=== PATIENT | female | born 1955 | race Caucasian/White ===

== ENCOUNTER → 2017-11-29 | Day surgery (SDC) | payer OTHER ==
[~2017-11-29] MED LIST: D31000CA3; GABA300C5 PO; IBUP200T PO; IOHEXOL 180 MG/ML 20 ML VIAL (for RAD DIAG) EPIDURAL ONE; KETO10 PO; LIDOCAINE HCL 2% PF 2 ML VIAL ONE; MELO7.5T27 PO; PRIL20TA2; PROPOFOL 200 MG/20 ML AMP IV ONE; SODIUM CHLORIDE 0.9% 10 ML VIAL ONE; TAMO20TA6 PO; TRIAMCINOLONE ACETONIDE 40 MG/ML VIAL NERV BLOCK ONE
--- NOTE | 2017-11-29 10:50 | M6 ---
cc: Abram Hanson MD,Sukhi Carson MD DATE: 11/29/2017 DATE OF : 1955 PROCEDURE: Fluoroscopically guided left L5 selective nerve root block (Attention Dr. Suarez, images were sent to the radiology department for your review). PROCEDURE NOTE: History and physical was completed and signed. Consent was signed. Procedure site was marked. Medications were listed and reconciled. Pain score was recorded. Allergies were noted. Time out was taken. Fluoroscopy time was recorded where applicable. Sedation was administered or directed by Dr. Hanson. The patient was given oxygen. The patient was monitored by a registered nurse. Total procedure time was greater than 15 minutes. IV was started. Blood pressure cuff, pulse oximeter and EKG were applied. The patient was placed in the prone position on a Andrzej table, sedated with small amounts of Propofol titrated to effect. Vital signs were monitored and remained stable throughout the procedure. The skin was prepped with alcohol and 10% Betadine solution and draped with sterile drapes. Fluoroscopy was used in both the AP and lateral projection to clearly visualize the left L5-S1 neural foramen. Then, a 22-gauge, 3-1/2-inch Chiba needle was advanced into the dorsal most aspect of the foramen. There was negative aspiration for blood or any other type of fluid. The patient was given 2 mL of Omnipaque which clearly outlined the L5 nerve root. This image was sent to the Radiology Department for further review and then at this point, the patient was given 1.5 mL of 2% lidocaine, and 40 mg of Kenalog directly on the L5 nerve root. We will follow up with the patient immediately and in the next few days to determine if she has a subjective decrease in her usual pain. Abram Hanson MD [facility]/DIANE , 10:23 AM , 10:49 AM
--- NOTE | 2017-11-29 14:24 | RADRPT ---
EXAM DATE/TIME: 11/28/2017 23:18 [facility] COMPARISON: No previous studies available for comparison. INDICATIONS : Left L5 Nerve block MEDICAL HISTORY : None. SURGICAL HISTORY : None. ENCOUNTER: Initial ACUITY: 1 day PAIN SCORE: Non-responsive. LOCATION: Lumbar FINDINGS: A single AP view of the lumbar spine was performed. A single needle is identified placed in the left paraspinal region along the L5-S1 neural foramen. Injection of contrast demonstrates flow contrast i nferiorly over the sacrum. CONCLUSION: Appropriate needle placement for left L5 nerve block. Venkat Cruz MD on November 29, 2017 at 14:20 Board Certified Radiologist. This report was verified electronically.
== END | disposition home or self-care (01) ==
LOC: PHSDC 08:55
PROVIDERS: ATTEND Pain Medicine Interventional Pain Medicine
DX: M54.5 Low back pain (principal); M79.662 Pain in left lower leg; M79.661 Pain in right lower leg
CPT/HCPCS: 64483; 72020; 99152; J3301; Q9965

== ENCOUNTER → 2017-12-20 | Day surgery (SDC) | payer OTHER ==
[~2017-12-20] MED LIST changes: +BUPIVACAINE HCL PF 0.5% 30 ML VIAL ONE; -GABA300C5 PO; -IOHEXOL 180 MG/ML 20 ML VIAL (for RAD DIAG) EPIDURAL ONE; -KETO10 PO; -LIDOCAINE HCL 2% PF 2 ML VIAL ONE; -SODIUM CHLORIDE 0.9% 10 ML VIAL ONE; +TRIAMCINOLONE ACETONIDE 40 MG/ML VIAL I-ARTICULR ONE; -TRIAMCINOLONE ACETONIDE 40 MG/ML VIAL NERV BLOCK ONE; +methylPREDNISolone ACETATE 40 MG/ML VIAL I-ARTICULR ONE
--- NOTE | 2017-12-20 10:30 | M6 ---
cc: Abram Hanson MD DATE: 12/20/2017 PROCEDURE PERFORMED: Fluoroscopic-guided injection bilateral sacroiliac joints. History and physical was completed and signed. Consent was signed. Procedure site was marked. Medications were listed and reconciled. Pain score was recorded. Allergies were noted. Time out was taken. Fluoroscopy time was recorded where applicable. Sedation was administered or directed by Dr. Hanson. The patient was given oxygen. The patient was monitored by a registered nurse. Total procedure time was greater than 15 minutes. IV was started. Blood pressure cuff, pulse oximeter and EKG were applied. The patient was placed in the prone position on a Andrzej table, sedated with small amounts of Propofol titrated to effect. Vital signs were monitored and remained stable throughout the procedure. The lumbar area was prepped with alcohol and 10% Betadine solution and draped with sterile drapes. Fluoroscopy was used shooting from medial to lateral to clearly visualize the posterior joint line of the bilateral sacroiliac joints. Separate sterile 5 inch, 22-gauge spinal needles were advanced into the joints under fluoroscopic guidance. There was negative aspiration for blood or any other type of fluid and at each location, the patient was given 2 mL of 0.5% Marcaine, 20 mg of Depo-Medrol and 20 mg of Kenalog. Following the procedure, the patient was taken to the recovery room with stable vital signs and neurologically intact. She will be evaluated immediately and will followup to determine if she has a subjective decrease in her usual pain and a corresponding objective increase in her functional capabilities. MD SULEIMAN Ribeiro/TRANG , 10:11 AM , 10:30 AM
== END | disposition home or self-care (01) ==
LOC: PHSDC 08:58
PROVIDERS: ATTEND Pain Medicine Interventional Pain Medicine
DX: M54.5 Low back pain (principal); M79.662 Pain in left lower leg; M79.661 Pain in right lower leg
CPT/HCPCS: 27096; 99152; J1030; J3301; G0260

== ENCOUNTER → 2018-01-13 | Outpatient (CLI) | payer OTHER ==
[~2018-01-13] MED LIST changes: -BUPIVACAINE HCL PF 0.5% 30 ML VIAL ONE; -PROPOFOL 200 MG/20 ML AMP IV ONE; -TRIAMCINOLONE ACETONIDE 40 MG/ML VIAL I-ARTICULR ONE; -methylPREDNISolone ACETATE 40 MG/ML VIAL I-ARTICULR ONE
== END ==
LOC: HREF 07:37
PROVIDERS: ATTEND Family Medicine
DX: N95.0 Postmenopausal bleeding (principal)
CPT/HCPCS: 88305

== ENCOUNTER → 2018-01-14 | Day surgery (SDC) | payer OTHER ==
[~2018-01-14] MED LIST changes: +BUPIVACAINE HCL PF 0.75% 30 ML VIAL; -D31000CA3; +EPINEPHrine HCL (1:1000) 30 MG/30 ML VIAL; -IBUP200T PO; +LACTATED RINGER'S 1000 ML INJ 1,000 ML; +LIDOCAINE 2%/EPINEPHrine PF 1:200,000 20ML SDV; -MELO7.5T27 PO; +MIDAZOLAM HCL 5 MG/ML VIAL (1 ML); +ONDANSETRON HCL 4 MG/2 ML VIAL IV PUSH; -PRIL20TA2; +PROPOFOL 200 MG/20 ML AMP IV; -TAMO20TA6 PO; +ceFAZolin 1 GM PREMIX 50 ML
== END | disposition home or self-care (01) ==
LOC: ESDC 06:03
DX: M75.122 Complete rotator cuff tear or rupture of left shoulder, not specified as traumatic (principal); M75.22 Bicipital tendinitis, left shoulder; M75.42 Impingement syndrome of left shoulder
CPT/HCPCS: 01630

== ENCOUNTER → 2018-02-02 | Day surgery (SDC) | payer OTHER ==
[~2018-02-02] MED LIST changes: -BUPIVACAINE HCL PF 0.75% 30 ML VIAL; +D31000CA3; -EPINEPHrine HCL (1:1000) 30 MG/30 ML VIAL; +IBUP200T PO; +IOHEXOL 180 MG/ML 20 ML VIAL (for RAD DIAG) EPIDURAL ONE; -LACTATED RINGER'S 1000 ML INJ 1,000 ML; -LIDOCAINE 2%/EPINEPHrine PF 1:200,000 20ML SDV; +LIDOCAINE HCL 1% 30 ML VIAL NERV BLOCK ONE; +MELO7.5T27 PO; -MIDAZOLAM HCL 5 MG/ML VIAL (1 ML); -ONDANSETRON HCL 4 MG/2 ML VIAL IV PUSH; +PERC5TAB12 PO; +PRIL20TA2; -PROPOFOL 200 MG/20 ML AMP IV; +PROPOFOL 200 MG/20 ML AMP IV ONE; +TAMO20TA6 PO; +TRIAMCINOLONE ACETONIDE 40 MG/ML VIAL NERV BLOCK ONE; -ceFAZolin 1 GM PREMIX 50 ML
--- NOTE | 2018-02-02 10:36 | M6 ---
cc: Abram Hanson MD DATE: 02/02/2018 PROCEDURE: Fluoroscopically-guided right S1 transforaminal epidural steroid injection. History and physical was completed and signed. Consent was signed. Procedure site was marked. Medications were listed and reconciled. Pain score was recorded. Allergies were noted. Time out was taken. Fluoroscopy time was recorded where applicable. Sedation was administered or directed by Dr. Hanson. The patient was given oxygen. The patient was monitored by a registered nurse. Total procedure time was greater than 15 minutes. PROCEDURE NOTE: An IV was started, blood pressure cuff, pulse oximeter and EKG were applied. The patient was placed in the prone position on a Andrzej table, sedated with small amounts of Versed and propofol titrated to effect. Vital signs were monitored and remained stable throughout the procedure. The patient remained responsive throughout the procedure. The lumbar area was scrubbed with antimicrobial solution, prepped with 10% Betadine solution, and draped with sterile drapes. Fluoroscopy was used in both the AP and lateral projections to clearly visualize the right S1 neural foramen. Then separate sterile 22 gauge, 3 1/2-inch Chiba needles were advanced under fluoroscopic guidance into the dorsal-most aspect of each foramen. There was negative aspiration for blood or CSF. There were no reported paresthesias by the patient. There was no washout of 2 mL of Omnipaque. Then after waiting approximately 60 seconds, the patient was slowly given 3 mL of 1% Xylocaine, 3 mL of Omnipaque and 60 mg of Kenalog at that location. Abram Hanson MD [facility] , 09:59 AM , 10:35 AM
== END | disposition home or self-care (01) ==
LOC: PHSDC 08:26
PROVIDERS: ATTEND Pain Medicine Interventional Pain Medicine
DX: M54.16 Radiculopathy, lumbar region (principal)
CPT/HCPCS: 64483; 99152; J3301; Q9965

== ENCOUNTER 2018-05-05 08:14 | Observation (INO) ==
[2018-05-05] MEDS ORDERED: Metoprolol Tartrate 25 MG Tablet PO SCH (08:45)
[2018-05-05] MEDS ORDERED: Chlorhexidine Gluconate 2% 1 Pack (2 Cloths) TOPICAL SCH (08:45)
[2018-05-05] MEDS ORDERED: Sodium Chlor 0.9% Inj 500 ML IV.SIG SCH (09:00)
[2018-05-05] MEDS ORDERED: ceFAZolin 2 GM Premix Inj 2 GM/100 ML BAG IV.SIG SCH (09:00)
[2018-05-05] MEDS ORDERED: Heparin - SQ 10,000 UNITS/ML Vial SQ SCH (09:00)
[2018-05-05] MEDS ORDERED: Sugammadex Inj 200 MG/2 ML Vial IV.PUSH ONE (10:56)
[2018-05-05] MEDS ORDERED: Lidocaine 1%/Epinephrine 1:100,000 Inj 20 ML Vial ONE (11:04)
[2018-05-05] MEDS ORDERED: Ketorolac Inj 30 MG/ML (IVP) Vial IV.PUSH ONE (14:15)
[2018-05-05] MEDS ORDERED: LORazepam 0.5 MG Tablet PO PRN (15:02)
[2018-05-05] MEDS ORDERED: *Meperidine Inj 25 MG/ML Vial PERIprocedural Use ONLY ONE (15:40)
[2018-05-05] MEDS: KCL 20 mEq/D5W/NaCl 0.45% Inj 1,000 ML IV.CONT SCH (15:45)
[2018-05-05] MEDS ORDERED: *morphine SULFATE 10 MG/ML PERIprocedure ONLY ONE (16:16)
[2018-05-05] MEDS ORDERED: Morphine Inj 4 MG/ML Vial ONE (18:00)
[2018-05-05] MEDS ORDERED: fentaNYL Citrate Inj 100 MCG/2 ML Ampul ONE ×2 (18:00)
[2018-05-05] MEDS: Ketorolac Inj 30 MG/ML (IVP) Vial IV.PUSH SCH ×2 (18:15→23:31)
[2018-05-05 23:43] VITALS: RESP 18
[2018-05-06] MEDS: KCL 20 mEq/D5W/NaCl 0.45% Inj 1,000 ML IV.CONT SCH (04:39)
[2018-05-06] MEDS: Ketorolac Inj 30 MG/ML (IVP) Vial IV.PUSH SCH ×2 (06:35→11:08)
[2018-05-06 07:32] LABS: Baso % (Auto) 0.1 % (0.0-2.0); Eos % (Auto) 0.1 % (0.0-4.0); Hemoglobin 11.1 gm/dL (11.6-15.3); Lymph # (Auto) 1.6 th/mm3 (1.0-4.8); Lymph % (Auto) 17.5 % (9.0-44.0); Mean Corpuscular HGB Conc 33.6 % (32.0-36.0); Mean Corpuscular Volume 92.2 fL (80.0-100.0); Mean Platelet Volume 9.8 fL (7.0-11.0); Mono # (Auto) 0.5 th/mm3 (0.0-0.9); Mono % (Auto) 5.9 % (0.0-8.0); Neut % (Auto) 76.4 % (16.0-70.0); Platelet Count 154 th/mm3 (150-450); Red Blood Count 3.58 mil/mm3 (4.00-5.30); Red Cell Distribution Width 12.3 % (11.6-17.2); White Blood Count 9.1 th/mm3 (4.0-11.0)
[2018-05-06 08:02] LABS: Anion Gap 6 meq/L (5-15); Blood Urea Nitrogen 7 mg/dL (7-18); Carbon Dioxide 29.9 meq/L (21.0-32.0); Chloride 107 meq/L (98-107); Glomerular Filtration Rate Greater Than 89 mL/min (>89); Glucose,Random 112 mg/dL (74-106); Sodium 143 meq/L (136-145)
[2018-05-06] MEDS ORDERED: Pantoprazole Sodium 20 MG DR Tablet PO SCH (09:00)
[2018-05-06 13:03] VITALS: BP 131/75; PULSE 92; TEMP 98; O2SAT 93
--- NOTE | 2018-05-08 21:48 | MD ---
cc: Lorraine Hastings MD,Eugenia Harris,Elvia Vasquez MD DATE OF DISCHARGE: 05/06/2018 PROCEDURE: Robotic-assisted laparoscopic hysterectomy, bilateral salpingo-oophorectomy. DIAGNOSIS: Endometrial polyps postmenopausal bleeding. HOSPITAL COURSE: She did well in her early postop period, hemodynamically stable, adequate pain control, tolerating oral intake. OBJECTIVE: Ins and outs 3280/1950. LABORATORY DATA: H and H 11.1 and 33. Electrolytes pending. PHYSICAL EXAM: VITAL SIGNS: Afebrile, pulse 68-101, respirations 18-20, blood pressure 100-128/60-75, O2 saturations greater than or equal to 98%. GENERAL: Alert and oriented x3, no acute distress. LUNGS: Clear. CARDIOVASCULAR: Regular rate and rhythm. ABDOMEN: Soft. Incisions clean and dry. GYNECOLOGIC: No bleeding. EXTREMITIES: Nontender. ASSESSMENT: Postoperative day number one. Findings at the time of surgery, preliminary pathology discussed. Overall, she is doing well. Recommendation for continued indwelling Salamanca due to scar tissue inflammation and dissection around the bladder as well as periurethral lacerations that required repair from a transvaginal delivery of specimen. She is encouraged to take once daily antibiotic, a prescription for which will be provided. She will also have a prescription for Percocet for pain and she is to resume prior medications. Prior to discharge, She the catheter will be changed to a leg bag and she will be given instructions on self-care at home. PLAN: I anticipate she will meet criteria for discharge to home. She is to contact our office to schedule a followup in one week for a postop check and Salamanca catheter removal. Activities, restrictions discussed. Questions were asked and answered. She expressed good understanding and agreed. MD PETRONA Medrano/emerald , 07:51 AM , 07:57 AM
--- NOTE | 2018-05-10 08:43 | MP ---
cc: Lorraine Hastings MD, Sandra L MD Deveras,Eugenia Alfredo MD DATE OF OPERATION: 05/05/2018 PREOPERATIVE DIAGNOSES: Thickened endometrial stripe, postmenopausal bleeding, enlarged uterus. POSTOPERATIVE DIAGNOSES: Thickened endometrial stripe, postmenopausal bleeding, enlarged uterus, and benign endometrial polyps. PROCEDURE PERFORMED: Robotic-assisted laparoscopic hysterectomy, bilateral salpingo-oophorectomy. SURGEON: Lorraine Hastings MD COMMERCIAL ATTORNEY: Ana first assistant manager. ANESTHESIA: General endotracheal anesthesia. ESTIMATED BLOOD LOSS: 150 mL. IV FLUIDS: 1800 mL. URINE OUTPUT: 200 mL. HISTORY: A 62-year-old female with postmenopausal bleeding. Imaging showed thickened endometrial stripe. She is on tamoxifen. Found on a clinic exam and biopsy to have a benign endometrial polyp. She was counseled regarding options and was in favor of definitive hysterectomy. She was seen in the preop holding area where the findings were again reviewed, the plan of care discussed. Questions were asked and answered. She expressed good understanding and would like to move forward with surgery. FINDINGS: Uterus is enlarged. It sounded to approximately 12 cm, symmetrically enlarged, suggestive of changes of leiomyomas, possibly adenomyosis. Tubes and ovaries grossly appeared normal. Minimal adhesions of the bowel to the left pelvic sidewall. Frozen section analysis showed benign endometrial polyp with no evidence of malignancy. There were no appreciably enlarged pelvic or periaortic lymph nodes. The peritoneal surfaces were smooth. No implants or other abnormalities detected. DESCRIPTION OF PROCEDURE: She was taken to the operating room and placed in dorsal lithotomy position after general endotracheal anesthesia was administered. A timeout was undertaken. She was identified by site recognition and hospital ID bracelet and the proposed procedure was reviewed and confirmed. She was carefully positioned in padded Shade stirrups. Her arms were padded and secured to the sides. She was further secured to the operating table with egg crate padding and tape in a cross chest [id number] fashion. All sites noted to be properly aligned with no malalignment or pressure points. She was prepped in a sterile fashion, draped below the waist, placed in lithotomy position. The cervix was grasped. Uterine cavity was sounded. Cervix was dilated and a large VCare manipulator was inserted and secured in usual fashion. Salamanca catheter placed in the bladder. She was returned to the low lithotomy position. Change of sterile gloves was undertaken. We completed draping in anticipation of laparoscopy and confirmed an orogastric tube in the stomach on suction. With manual elevation of the abdominal wall and direct laparoscopic visualization, a 5 mm cannula was placed in the left upper quadrant. Carbon dioxide gas was insufflated. An 8 mm cannula was placed in the right upper quadrant and left lateral quadrant and a 10-12 mm cannula placed in the midline above the umbilicus. Peritoneal washings were obtained for cytology. The anatomy was surveyed with findings as described above. She was placed in Trendelenburg position. The small bowel was folded back on its mesenteric root and 3 Ray-Mer sponges were placed around the root of the small bowel mesentery. Robotic system was brought into the operative field and attached in the usual fashion. Monopolar scissors, fenestrated bipolar forceps, and ProGrasp manipulators were placed in arms 1, 2, and 3 respectively; and I took my place at the surgeon's console. The right round ligament was isolated, cauterized, and transected. The anterior and posterior leaves of the broad ligament were opened. The right ureter was identified. The right infundibulopelvic ligament was isolated. The infundibulopelvic ligament was cauterized and transected. Posterior peritoneum opened along the right side of the uterus and cervix and the right vesicouterine peritoneum was dissected off the lower uterine segment and cervix. Some adhesions and some mild bleeding were encountered in this dissection. The right uterine vessels were skeletonized and cauterized. Attention was directed toward the left side where the left round ligament was isolated, cauterized, and transected. The anterior and posterior leaves of the broad ligament were opened. Adhesions were taken down to mobilize the colon from its attachment to the left pelvic sidewall. The left ureter was identified. The left infundibulopelvic ligament was isolated. The intervening peritoneum was opened and the infundibulopelvic ligament was cauterized and transected. Posterior peritoneum opened along the left side of the uterus and cervix and the left vesicouterine peritoneum was taken down as additional adhesions were taken down to mobilize this tissue. The left uterine vessels were skeletonized, cauterized, and transected as were the cardinal, paracervical, and uterosacral ligaments; thereby freeing the attachments along the left side of the uterus and cervix. Attention was redirected toward the right side, where the right uterine vessels were transected. The cardinal, paracervical, and uterosacral ligaments were isolated, cauterized, and transected in a stepwise fashion; thereby freeing the attachments along the right side of the uterus and cervix. Circumferential colpotomy was performed, the cervix from the upper vagina. Due to the large size of the uterus relative to the pelvic outlet, I left the surgeon's console to help facilitate delivery of the specimen transvaginally. With countertraction using tenacula and slow repositioning and withdrawal, able to deliver the specimen transvaginally which included uterus, cervix, tubes, and ovaries; and a pneumo-occluder balloon was placed in the vagina to maintain pneumoperitoneum. Instruments 1 and 3 were exchanged for needle drivers as I returned to the surgeon's console. Vaginal cuff was closed starting at the left corner full-thickness closure, incorporating the posterior peritoneum and edge of the uterosacral ligament tied via instrument tie. The closure was held on countertraction as a running continuous full-thickness closure was carried across the vaginal apex to the contralateral corner, where it was similarly fixed, secured, and tied. The needle was cut and removed. The pelvis was irrigated. Small bleeders rendered hemostatic with bipolar cautery. The bladder flap was inspected and the integrity of the bladder was confirmed by filling the bladder with saline dyed with methylene blue. There were no areas of blue to suggest thinning of the bladder. Certainly no extravasation of dye. There was a good margin between the bladder edge and the vaginal cuff suture line. Good peristalsis of ureters bilaterally. There was, however, some oozing and some irritation from the dissection that occurred adjacent to the bladder taking adhesions down; and these were rendered hemostatic with superficial cautery. To assist in continued hemostasis, hemostatic Francie powder was placed across the vaginal cuff and the bladder flap at the lateral pelvic sidewalls. Frozen section came back showing benign polyps. No evidence of malignancy. Accordingly, it was felt that all reasonable surgical objectives were completed. The surgical instruments were removed, the robotic system was disengaged from the operative field, and I reentered the bedside under sterile conditions. Each of the 3 Ray-Mer sponges were removed individually, each inspected and noted to be removed in their entirety. Inspection confirmed there were no remaining foreign objects in the peritoneal cavity. Preliminary counts were correct. The 12 mm fascial defect was closed with #0 Vicryl sutures in an interrupted fashion using a needle fascia closure device. They were tied securely which rendered the fascia completely airtight and hemostatic. The remaining cannulas were withdrawn. Carbon dioxide gas was removed. Then 3-0 Vicryl subcutaneous, 3-0 Vicryl subcuticular, and Steri-Strips were used to close these incisions. She was returned to dorsal lithotomy position. Inspection confirmed that the vaginal cuff itself was hemostatic and well supported. However, there were several superficial lacerations near the introitus from delivery of the specimen transvaginally which required reapproximation with interrupted [id number] 3-0 Vicryl sutures to render them hemostatic and well approximated. The vagina was again inspected, irrigated. All sites now noted to be hemostatic and some hemostatic agent was placed in the vagina to assist in continued hemostasis. Otherwise,there were no remaining foreign objects in the vagina and final counts were correct. She was returned to dorsal supine position and was pending reversal of anesthesia when I left the operating room to precede her to the postanesthesia care unit. MD PETRONA Medrano/teo , 07:53 AM , 08:07 AM
== END 2018-05-06 11:15 | disposition home or self-care (01) ==
LOC: HSDI 08:14 → HSDC 08:14 → HCIN 17:37
PROVIDERS: ADMIT Obstetrics & Gynecology Gynecologic Oncology; ATTEND Obstetrics & Gynecology Gynecologic Oncology